=== PATIENT | female | born 1975 | race Caucasian/White ===

== ENCOUNTER 2018-04-27 14:13 | Inpatient (IN) | payer OTHER ==
[2018-04-27] MEDS ORDERED: Ketorolac Tromethamine 30 MG/ML VIAL ONE (15:50)
[2018-04-27] MEDS ORDERED: Haloperidol Lactate 5 MG/ML VIAL ONE (16:16)
[2018-04-27] MEDS ORDERED: Ketorolac Tromethamine 30 MG/ML VIAL IVP PRN (17:35)
[2018-04-27] MEDS ORDERED: Acetaminophen 650 MG Suppository PR PRN (17:35)
[2018-04-27 17:48] VITALS: BMI 35.9
[2018-04-27] MEDS: Dextrose 5%-Lactated Ringers 1,000 ML IV SCH (18:05)
--- NOTE | 2018-04-27 18:44 | HP ---
Patient transferred from [place] to [facility] with possible small-bowel obstruction. [facility] HISTORY OF PRESENT ILLNESS: The patient has had nausea and vomiting since 4:00 a.m. No blood. She h as had diffuse abdominal pain; however, she has apparently had longstanding abdominal pain, this is e pigastric. She has had no fever. She has had some mild chills and some sweats. Last BM was yesterd ay. No melena. Her only chronic medical problem is bipolar type 2. CURRENT MEDICATIONS: or Prozac 60 mg a day, Abilify 10 mg a day, Tegretol 300 mg twice a day, 400 mg at bedtime. ALLERGIES: IODINE CONTRAST. PAST SURGICAL HISTORY: Gastric bypass in 2004, exploratory lap in 10/22/2005 and 12/21, in 2008. FAMILY HISTORY: She states occasionally her ammonia gets high. She has a OTC deficiency, mild. She states her Father of colorectal cancer. Mother is okay. She is single. SOCIAL HISTORY: No tobacco, no alcohol. Admits to THC for which she states she uses to try to contr ol the nausea. REVIEW OF SYSTEMS: General: No headache, dizziness or fainting. Eyes: No double vision, flashing lights, blurred vision. ENT: No ear pain or drainage. No nasal bleeding or drainage. No oral pain or trouble swallowing. Cardiac: No chest pain, orthopnea or paroxysmal nocturnal dyspnea. Respira tions: No cough, wheezing or asthma. Gastrointestinal: See present illness. Genitourinary: No hematuria, dysuria. Musculoskeletal: No pain or swelling in her legs or arms. Neurologic: No history of strokes, seizures or focal weakness. Psychiatric: Bipolar syndrome for carin huaater than 15 years. Skin: No bruises, bleeding or rash. Heme/Lymph: No tender or swollen lymph nodes in axilla, inguinal or cervical area. PHYSICAL EXAMINATION: VITAL SIGNS: Blood pressure 141/82, pulse 65, respiration 18, temperature 98. She complains of 10/1 0 pain. HEENT: Pupils equal, round, and reactive to light. Extraocular movements are intact. Sclerae white . Tympanic membranes are clear. Nose is clear. Oral mucous membranes are wet. Dental hygiene is g ood. NECK: Supple, without jugular venous distention, adenopathy, thyromegaly. CHEST: Clear to auscultation and percussion. HEART: Had a regular rate and rhythm. First and second heart sounds are clear. There are no murmur s or gallops. ABDOMEN: No distention. Bowel sounds are present. The patient reacts with complaints of severe iwona n if even touch her skin of her abdomen. EXTREMITIES: No cyanosis, clubbing or edema. SKIN: Warm and dry without bruises or rash. HEME/LYMPH: No tender or swollen lymph nodes in axilla, inguinal or cervical area. NEUROLOGICAL: Cranial nerves II through XII are intact. Deep tendon reflexes symmetric. Moves all extremities. LABORATORY DATA AND X-RAY FINDINGS: CT scan done in [place] without contrast IV or oral suggest possible small-bowel obstruction of ventral hernia with bowel in it. Laboratory done in [facility] showed white blood cell count of 11.4, hemoglobin 14.7, platelet count 327,000. Chemistries: Lact ic acid 4.4, glucose 123, sodium 144, potassium 3.5, chloride 111, CO2 17, BUN 8, creatinine 0.73. L iver function tests normal. test negative. Lipase 27. ADMITTING DIAGNOSES: 1. Nausea and vomiting. 2. Abdominal pain. 3. Small-bowel obstruction per CT scan. 4. Bipolar syndrome. 5. Lactic acidosis. PLAN: 1. Surgery consult. 2. Probable Gastrografin upper GI. 3. Repeat CBC, basic metabolic profile in the morning. 4. IV fluids at 125 mL an hour. 5. Toradol for pain.
[2018-04-27] MEDS: Famotidine/PF 20 mg/2ml Vial SLOW IVP SCH (19:56)
[2018-04-27 20:40] LABS: Lactic Acid 3.1 mmol/L (0.5-2.2)
--- NOTE | 2018-04-27 21:05 | RAD ---
FOUR VIEWS OF THE ABDOMEN: 04/27/18 INDICATION: Small bowel obstruction. COMPARISON: CT of the abdomen and pelvis dated 04/27/18. FINDINGS: There has been interval placement of a gastric catheter coiled within the region of the gastric body. Bowel gas pattern is nonspecific but without overt evidence of obstruction. Surgical suture line seen within the left upper quadrant consistent with patient's history of a gastric bypass. There is scatt ered degenerative and osteoarthritic change. There is thoracolumbar scoliosis. Visualized lung bases are clear. IMPRESSION: 1. Interval placement of new gastric catheter projecting in the region of the patient's gastric pouch. 2. Postoperative change of a gastric bypass. 3. Bowel gas pattern is nonspecific but without overt evidence of obstruction. POS: [facility]
[2018-04-27] MEDS: Ondansetron HCl/PF 4 MG/2 ML Vial IVP PRN (21:38)
[2018-04-28] MEDS: Dextrose 5%-Lactated Ringers 1,000 ML IV SCH ×2 (04:51→10:51)
[2018-04-28 04:52] LABS: Anion Gap 15 mmol/L (10-20); BUN (Urea Nitrogen) 7 mg/dL (7.0-18.7); Calc. Creatinine Clearance 201 mL/min (70-130); Calcium 8.7 mg/dL (7.8-10.44); Carbon Dioxide 17 mmol/L (22-29); Chloride 115 mmol/L (98-107); Estimated GFR-MDRD Greater than 90; Glucose 161 mg/dL (70-105); Potassium 3.3 mmol/L (3.5-5.1); Sodium 144 mmol/L (136-145)
[2018-04-28] MEDS: Ondansetron HCl/PF 4 MG/2 ML Vial IVP PRN (04:52)
[2018-04-28 05:10] LABS: #Lymphocytes 1.4 thou/uL (1.20-3.40); #Monocytes 0.6 thou/uL (0.11-0.59); %Basophils 0.5 % (0.0-1.0); %Eosinophils 0.3 % (0.0-10.0); %Lymphocytes 15.3 % (21.0-51.0); %Monocytes 6.3 % (0.0-10.0); %Neutrophils 77.7 % (42.0-75.0); Anisocytosis MODERATE=16-30 cells (100X) (0-5/hpf); Elliptocytes SLIGHT = 2-5 cells (100X) (0-1/hpf); Hemoglobin 13.5 g/dL (12.0-16.0); MDiff Complete? YES; Mean Corpuscular HGB CONC 33.5 g/dL (32.0-36.0); Mean Corpuscular Hemoglobin 26.3 pg (27.0-31.0); Mean Corpuscular Volume 78.7 fL (78.0-98.0); Mean Platelet Volume 6.2 fL (7.4-10.4); PLT Morphology Comment Appears Adequate; Platelet Count 212 thou/uL (130-400); RBC Distribution Width 22.5 % (11.5-14.5); Red Blood Cell (RBC) Count 5.12 mill/uL (4.20-5.40)
--- NOTE | 2018-04-28 07:59 | PDOC.PN ---
- Subjective Encounter Start Date: 04/28/18 Encounter Start Time: 07:58 Subjective: better, had BM - Objective Resuscitation Status: Resuscitation Status FULL:Full Resuscitation MAR Reviewed: Yes Vital Signs & Weight: Vital Signs (12 hours) Temp Pulse Resp BP Pulse Ox 04/28/18 00:00 98.7 F 75 20 160/94 H 98 04/27/18 20:00 99.1 F 70 20 99 Weight Weight 229 lb 4.492 oz I&O: 04/27/18 04/28/18 04/29/18 06:59 06:59 06:59 Intake Total 1200 Output Total 2 Balance 1198 Result Diagrams: 04/28/18 03:28 04/28/18 03:28 Radiology Reviewed by me: Yes (2 V abd- no evidense for SBO) Phys Exam - Physical Examination Neck: no JVD Respiratory: clear to auscultation bilateral Cardiovascular: RRR, no significant murmur Gastrointestinal: soft, positive bowel sounds Musculoskeletal: no edema Dx/Plan (1) SBO (small bowel obstruction) Code(s): K56.609 - UNSP INTESTNL OBST, UNSP TO PARTIAL VERSUS COMPLETE OBST Status: Resolved (2) Bipolar 2 disorder Code(s): F31.81 - BIPOLAR II DISORDER Status: Acute (3) Lactic acid acidosis Code(s): E87.2 - ACIDOSIS Status: Acute - Plan DC NG -: clear liquids -: resume home meds * .
[2018-04-28 08:00] LABS: Cocaine Metabolite Screen Not Detected (NotDetected); Medtox Reader # READER 4; Phencyclidine (PCP) Not Detected (NotDetected); THC/Cannabinoid Screen Detected (NotDetected)
[2018-04-28 08:01] LABS: Amphetamine Not Detected (NotDetected); Barbiturates Screen Not Detected (NotDetected); Benzodiazepine Screen Detected (NotDetected); Medtox Control Line Valid? VALID (VALID); Methadone Not Detected (NotDetected); Methamphetamine Not Detected (NotDetected); Opiate Screen Detected (NotDetected); Oxycodone Screen Not Detected (NotDetected); Tricyclic Screen Not Detected (NotDetected)
[2018-04-28] MEDS ORDERED: buPROPion 75 MG TAB PO SCH (09:00)
[2018-04-28] MEDS ORDERED: FLUoxetine HCl 20 MG CAP PO SCH ×2 (09:00→21:00)
[2018-04-28] MEDS ORDERED: carBAMazepine 200 MG TAB PO SCH ×2 (09:00→21:00)
[2018-04-28] MEDS: Famotidine/PF 20 mg/2ml Vial SLOW IVP SCH (10:50)
--- NOTE | 2018-04-28 10:50 | RAD ---
SMALL BOWEL SERIES: Date: 04/28/18 HISTORY: 42-year-old female with diagnosis of partial small bowel obstruction. FINDINGS: On the drag car racer view, the previously demonstrated NG tube that was present on 04/27/18 is no longer pres ent. Suture lines are again noted in the left upper quadrant. Bowel gas pattern is normal. 15 minutes after Gastrografin administration, contrast material is present throughout the entire small intestin e, and has already reached the entire colon, including rectum. Small bowel caliber is normal. IMPRESSION: 1. Very rapid gastrointestinal transit time. 2. No small bowel obstruction. POS: [facility]
--- NOTE | 2018-04-28 11:48 | PDOC.GSCN ---
Surgery Consult: HPI - Consult details Date: 04/28/18 Time: 11:00 Reason for consult: small bowel obstruction History of present illness: 04/28/18 11:51 Patient presented with nausea, vomiting, diffuse abdominal pain. Patient has had bowel movement. She is feeling well, pain has resolved. Denies nausea. Surgery Consult: ROS - Review of Systems All systems: 10 systems reviewed and no additional complaints unless stated below. Surgery Consult: [facility] Past Medical History: Bipolar Past Surgical History: Gastric bypass, exploratory laparotomy , - Past Family History Family history: reviewed and not pertinent - Past Social History Smoking Status: Never smoker Alcohol Use: none Drug Use History: marijuana Living Situation: independent Surgery Consult: Exam - Vital signs Vital signs: Vital Signs - Most Recent Temp Pulse Resp BP Pulse Ox 99.2 F 64 18 151/86 H 97 04/28/18 11:38 04/28/18 11:38 04/28/18 11:38 04/28/18 11:38 04/28/18 11:38 - Physical Exam General: no distress, well developed, well nourished Respiratory: clear to auscultation (RRR, no murmur) Abdomen: soft, tender (very mild diffuse). negative: guarding, rigid, rebound Psychiatric: memory intact Surgery Consult: Meds - Medications MAR Reviewed: Yes Medications: Current Medications Acetaminophen (Tylenol) 650 mg OK Q4H PRN PRN Reason: Headache/Fever or Pain Aripiprazole (Abilify) 10 mg PO HS [facility] Bupropion HCl (Wellbutrin) 150 mg PO DAILY [facility] Last Admin: 04/28/18 10:50 Dose: 150 mg Carbamazepine (Tegretol) 300 mg PO DAILY [facility] Last Admin: 04/28/18 10:49 Dose: 300 mg Carbamazepine (Tegretol) 400 mg PO HS [facility] Famotidine (Pepcid) 20 mg SLOW IVP Q12HR [facility] Last Admin: 04/28/18 10:50 Dose: 20 mg Fluoxetine HCl (Prozac) 20 mg PO HS [facility] Fluoxetine HCl (Prozac) 40 mg PO DAILY [facility] Last Admin: 04/28/18 10:50 Dose: 40 mg Morphine Sulfate (Morphine) 2 mg SLOW IVP Q4H PRN PRN Reason: Pain Last Admin: 04/28/18 04:30 Dose: 2 mg Ondansetron HCl (Zofran) 4 mg IVP Q6H PRN PRN Reason: Nausea/Vomiting Last Admin: 04/28/18 04:52 Dose: 4 mg Trazodone HCl (Desyrel) 300 mg PO HS KILEY - Allergies Allergies/Adverse Reactions: Allergies Allergy/AdvReac Type Severity Reaction Status Date / Time iodine Allergy Verified 04/27/18 18:38 ketorolac [From Toradol] AdvReac Verified 04/27/18 18:06 Surgery Consult: Results - Labs Result Diagrams: 04/28/18 03:28 04/28/18 03:28 Lab results: Laboratory Results WBC 9.0 thou/uL (4.8-10.8) 04/28/18 03:28 RBC 5.12 mill/uL (4.20-5.40) 04/28/18 03:28 Hgb 13.5 g/dL (12.0-16.0) 04/28/18 03:28 Hct 40.3 % (36.0-47.0) 04/28/18 03:28 MCV 78.7 fL (78.0-98.0) 04/28/18 03:28 MCH 26.3 pg (27.0-31.0) L 04/28/18 03:28 MCHC 33.5 g/dL (32.0-36.0) 04/28/18 03:28 RDW 22.5 % (11.5-14.5) H 04/28/18 03:28 Plt Count 212 thou/uL (130-400) 04/28/18 03:28 MPV 6.2 fL (7.4-10.4) L 04/28/18 03:28 Neutrophils % 77.7 % (42.0-75.0) H 04/28/18 03:28 Neutrophils % (Manual) Not Reportable 04/28/18 03:28 Lymphocytes % 15.3 % (21.0-51.0) L 04/28/18 03:28 Monocytes % 6.3 % (0.0-10.0) 04/28/18 03:28 Eosinophils % 0.3 % (0.0-10.0) 04/28/18 03:28 Basophils % 0.5 % (0.0-1.0) 04/28/18 03:28 Neutrophils # 7.0 thou/uL (1.40-6.50) H 04/28/18 03:28 Lymphocytes # 1.4 thou/uL (1.20-3.40) 04/28/18 03:28 Monocytes # 0.6 thou/uL (0.11-0.59) H 04/28/18 03:28 Eosinophils # 0.0 thou/uL (0.0-0.7) 04/28/18 03:28 Basophils # 0.0 thou/uL (0.0-0.2) 04/28/18 03:28 Plt Morphology Comment Appears Adequate 04/28/18 03:28 Anisocytosis MODERATE=16-30 cells (100X) (0-5/hpf) 04/28/18 03:28 Elliptocytes SLIGHT = 2-5 cells (100X) (0-1/hpf) 04/28/18 03:28 Sodium 144 mmol/L (136-145) 04/28/18 03:28 Potassium 3.3 mmol/L (3.5-5.1) L 04/28/18 03:28 Chloride 115 mmol/L (98-107) H 04/28/18 03:28 Carbon Dioxide 17 mmol/L (22-29) L 04/28/18 03:28 Anion Gap 15 mmol/L (10-20) 04/28/18 03:28 BUN 7 mg/dL (7.0-18.7) 04/28/18 03:28 Creatinine 0.61 mg/dL (0.6-1.1) 04/28/18 03:28 Estimated GFR (MDRD) Greater than 90 04/28/18 03:28 Glucose 161 mg/dL (70-105) H 04/28/18 03:28 Lactic Acid 3.1 mmol/L (0.5-2.2) H 04/27/18 20:08 Calcium 8.7 mg/dL (7.8-10.44) 04/28/18 03:28 Urine Opiates Screen Detected (NotDetected) H 04/28/18 07:00 Ur Oxycodone Screen Not Detected (NotDetected) 04/28/18 07:00 Urine Methadone Screen Not Detected (NotDetected) 04/28/18 07:00 Ur Propoxyphene Screen Not Detected (NotDetected) 04/28/18 07:00 Ur Barbiturates Screen Not Detected (NotDetected) 04/28/18 07:00 Ur Tricyclics Screen Not Detected (NotDetected) 04/28/18 07:00 Ur Phencyclidine Scrn Not Detected (NotDetected) 04/28/18 07:00 Ur Amphetamines Screen Not Detected (NotDetected) 04/28/18 07:00 U Methamphetamines Scrn Not Detected (NotDetected) 04/28/18 07:00 U Benzodiazepines Scrn Detected (NotDetected) H 04/28/18 07:00 U Cocaine Metab Screen Not Detected (NotDetected) 04/28/18 07:00 U Cannabinoids Screen Detected (NotDetected) H 04/28/18 07:00 Drug Screen Comment () 04/28/18 07:00 Surgery Consult: A/P - Plan Plan: 42 year old female admitted with concern for possible SBO - abdominal xray reviewed - small bowel series showed rapid GI transit time, no SBO - advance to regular diet - considering recent BMs and reassuring imaging, no indication for surgery at this time - Pending tolerating PO intake well, okay for discharge later today Patient seen, examined, discussed Dr. Archuleta who formulated plan and is in agreement with above.
[2018-04-28 16:50] VITALS: BP 149/84; TEMP 100.1
--- NOTE | 2018-04-28 18:22 | DIS ---
DATE OF ADMISSION: 04/27/2018 DATE OF DISCHARGE: 04/28/2018 DISCHARGE DISPOSITION: Home. PRIMARY CARE PROVIDER: Rush Rivera. DIAGNOSES: Small-bowel obstruction relieved, bipolar II disorder, acidosis. DISCHARGE MEDICATIONS: Were her home medicines; fluoxetine 60 mg a day, Abilify 10 mg a day, trazodo ne 300 mg at bedtime, bupropion 150 mg a day, Tegretol 300 mg in the morning and 400 at night. ALLERGIES: IODINE, TORADOL. HOSPITAL COURSE: The patient with nausea, vomiting and abdominal discomfort, seen in [place] [facility] with CT revealed possible small-bowel obstruction. She was transferred here. On her laboratory her e, CBC is unremarkable. Her chemistries revealed mild decreased chloride, CO2. On first visit, she had some abdominal distention and some tenderness. Now she is tolerating clear liquids and got marcial ous of going home. She was seen in consultation by General Surgery who considered her safe to be dis charged. Her vital signs are stable. Her abdominal exam is unremarkable. She had no procedures. S he is being discharged to be followed up by her PCP, Dr. Rivera in 1 week.
[2018-04-28] MEDS ORDERED: traZODone HCl 150 MG TAB PO SCH (21:00)
[2018-04-28] MEDS ORDERED: Aripiprazole 10 MG TAB PO SCH (21:00)
== END 2018-04-28 17:20 | disposition home or self-care (01) | DRG 389 ==
LOC: ERS 14:13 → T4-B 14:40 → ERS 17:15
PROVIDERS: ADMIT Internal Medicine; ATTEND Internal Medicine
DX: K56.609 Unspecified intestinal obstruction, unspecified as to partial versus complete obstruction (principal); E87.2 Acidosis; F31.81 Bipolar II disorder; Z98.84 Bariatric surgery status; Z80.0 Family history of malignant neoplasm of digestive organs; Z91.041 Radiographic dye allergy status
CPT/HCPCS: 36415; 74019; 74250; 80048; 80306; 83605; 85025; 96374; 96375; J1630; J1885; J2270; J2405; S0028

== ENCOUNTER 2020-02-07 15:32 | Inpatient (IN) | payer OTHER ==
[2020-02-07 18:02] VITALS: BMI 42.3
[2020-02-07] MEDS ORDERED: Enoxaparin Sodium 40 MG/0.4 ML SYRINGE SC SCH (20:00)
--- NOTE | 2020-02-07 20:03 | PDOC.HHP ---
Hospitalist HPI - History of Present Illness Lower Lip swelling/Pain History of Present Illness: PCP: Dr. Velázquez The patient is a 44/F with no significant PMH that presents to the hospital for the above complaint. The patient reports lower lip swelling x 6 days. States that it started as a "pimple" on her lower right lip on . She washed her face that morning and it went away. evening, it returned. Reports increased swelling and pain. On Thursday, she went to the ER, she was given prescription for Clindamycin. She has been compliant, taking the medication as prescribed. Today, she had increased swelling and pain, rated 10/10 on pain scale, she reports having to eat a liquid diet using a straw. She reports associated fever, Tmax 101F this morning, taking tylenol and ibuprofen. She denies any dysphagia or SOB. She is able to control her saliva. Her told her that he did see a spider in their bed, the morning that she developed the original insult to her lip. ED Course: VS stable WBC 9.2 LA 1.0 CMP unremarkable Given: Hydroxyzine Morphine 4mg IVP Vanc and Cefepime 1L NS Allergies: Iodine and ketorolac Home Medications: 1. Vistaril 50mg QID prn anxiety Hospitalist ROS - Review of Systems Constitutional: reports: fever (Tmax 101F). denies: chills, weakness Eyes: denies: pain, vision change, conjunctivae inflammation, eyelid inflammation, redness, other ENT: reports: mouth pain (lower lip), mouth swelling (lower lip). denies: ear pain, ear discharge, nose pain, nose discharge, nose congestion, throat pain, throat swelling Respiratory: denies: cough, dry, shortness of breath, hemoptysis, SOB with excertion, pleuritic pain, sputum, wheezing, other Cardiovascular: denies: chest pain, palpitations, orthopnea, paroxysmal noc. dyspnea, edema, light headedness, other Gastrointestinal: denies: nausea, vomiting, abdominal pain, diarrhea, constipation, melena, hematochezia, other Genitourinary: denies: dysuria, frequency, incontinence, hematuria, retention, other Neurological: denies: weakness, numbness, incoordination, change in speech, confusion, seizures, other Hospitalist History - Past Medical History Source: patient Psych: reports: Anxiety, Bipolar Renal/: reports: Other (recurrent UTIs) Other Medical History: Obesity Ornithine TransCarbamylase (OTC) deficiency - Past Surgical History Past Surgical History: reports: , Tonsillectomy, Other (Gastric bypass) - Family History Family History: reports: no pertinent history Other Family History: Non contributory for this case - Social History Smoking Status: Current every day smoker Alcohol: reports: Rare Drugs: reports: marijuana (1/2 -1 joint per day) Living Situation: With Family Occupation: Lives in [place], works at [employer]. Activity level: independent ambulation - Exam General Appearance: NAD, awake alert Eye: PERRL, anicteric sclera ENT: normocephalic atraumatic ENT - other findings: significant swelling to lower lip with induration to right low lip Neck: supple Heart: RRR, no murmur, no gallops, no rubs, normal peripheral pulses Respiratory: CTAB, no wheezes, no rales, no ronchi, no tachypnea Gastrointestinal: soft, non-tender, normal bowel sounds, no guarding, no rigidity Extremities: no cyanosis, no edema Neurological: no focal deficits Musculoskeletal: normal tone, normal strength Psychiatric: normal affect, A&O x 3 Hospitalist H&P A/P - Problem (1) Cellulitis, lip Code(s): K13.0 - DISEASES OF LIPS Status: Acute Assessment and Plan: Admit to the medical floor, inpatient status Expected length of stay at least 2 midnights Patient report febrile, Tmax 101F, oral clindamycin x3-4 days w/ worsening swelling and pain Afebrile, VS stable WBC 9.2 LA 1.0 Continue broad spectrum abx coverage w/ vanc and cefepime IVF, analgesia prn If symptoms do not improve, consider consulting OFM/surgeon (2) Failure of outpatient treatment Code(s): Z78.9 - OTHER SPECIFIED HEALTH STATUS Status: Acute Assessment and Plan: Started Oral Clindamycin on Thursday, 3-4 days therapy Worsening swelling, pain and febrile (3) Bipolar 2 disorder Code(s): F31.81 - BIPOLAR II DISORDER Status: Chronic Assessment and Plan: stable. (4) Anxiety Code(s): F41.9 - ANXIETY DISORDER, UNSPECIFIED Status: Chronic Assessment and Plan: Patient takes Vistaril prn Will restart home med when reconciled by nursing - Plan Plan: Consult Walking program Pepcid GI prophylaxis LMWH DVT prophylaxis Full Code [facility] is [facility] at [phone] Taylor
[2020-02-07] MEDS: Famotidine 20 MG TAB PO SCH (20:45)
[2020-02-07] MEDS: HYDROcodone/Acetaminophen 5/325 mg Tablet PO PRN (20:45)
[2020-02-07] MEDS: Vancomycin 1.5 GRAM/300 ML BAG 1.5 GM in Premix Bag 1 BAG IVPB SCH (20:45)
[2020-02-07] MEDS: Sodium Chloride 0.9% 1,000 ML IV SCH (20:46)
[2020-02-07] MEDS: hydrOXYzine Pamoate 25 mg Capsule PO PRN (20:55)
[2020-02-08] MEDS: HYDROcodone/Acetaminophen 5/325 mg Tablet PO PRN ×6 (00:16→23:39)
[2020-02-08] MEDS ORDERED: Cefepime 2 GM in Sodium Chloride 0.9% 100 ML IVPB SCH (04:00)
[2020-02-08] MEDS: Vancomycin 1.5 GRAM/300 ML BAG 1.5 GM in Premix Bag 1 BAG IVPB SCH ×3 (05:17→20:56)
[2020-02-08 06:34] LABS: #Eosinphils 0.1 thou/uL (0.0-0.7); #Monocytes 0.6 thou/uL (0.11-0.59); #Neutrophils 4.5 thou/uL (1.40-6.50); %Basophils 0.4 % (0.0-1.0); %Eosinophils 1.5 % (0.0-10.0); %Lymphocytes 27.3 % (21.0-51.0); %Neutrophils 62.8 % (42.0-75.0); Hemoglobin 13.8 g/dL (12.0-16.0); Mean Corpuscular HGB CONC 31.6 g/dL (32.0-36.0); Mean Corpuscular Hemoglobin 26.7 pg (27.0-31.0); Mean Corpuscular Volume 84.6 fL (78.0-98.0); Mean Platelet Volume 8.9 fL (7.4-10.4); Platelet Count 212 thou/uL (130-400); RBC Distribution Width 14.7 % (11.5-14.5); Red Blood Cell (RBC) Count 5.15 mill/uL (4.20-5.40); White Blood Cell (WBC) Count 7.2 thou/uL (4.8-10.8)
[2020-02-08 06:56] LABS: Anion Gap 12 mmol/L (10-20); BUN (Urea Nitrogen) 5 mg/dL (7.0-18.7); Calc. Creatinine Clearance 223 mL/min (70-130); Calcium 8.1 mg/dL (7.8-10.44); Carbon Dioxide 23 mmol/L (22-29); Chloride 108 mmol/L (98-107); Estimated GFR-MDRD Greater than 90; Glucose 95 mg/dL (70-105); Potassium 3.3 mmol/L (3.5-5.1); Sodium 140 mmol/L (136-145)
[2020-02-08] MEDS: Famotidine 20 MG TAB PO SCH (09:56)
[2020-02-08] MEDS: Sodium Chloride 0.9% 1,000 ML IV SCH ×2 (10:02→11:26)
[2020-02-08] MEDS ORDERED: Potassium Chloride 20 MEQ TAB PO SCH (10:15)
[2020-02-08] MEDS ORDERED: methylPREDNISolone Sod Succ/PF 125 MG/2 ML VIAL IVP SCH (11:15)
[2020-02-08] MEDS: hydrOXYzine Pamoate 25 mg Capsule PO PRN (11:44)
[2020-02-08] MEDS: Ampicillin/Sulbactam 1.5 GM in Sodium Chloride 0.9% 100 ML IVPB SCH ×2 (11:44→17:53)
--- NOTE | 2020-02-08 14:09 | PDOC.HOSPP ---
- Subjective Encounter Date: 02/08/20 Encounter Time: 09:30 Subjective: burning sensation radiating to the neck, pain controlled, hx of spider bite reaction in her r.. arm. - Objective Vital Signs & Weight: Vital Signs (12 hours) Temp Pulse Resp BP Pulse Ox 02/08/20 12:07 98.7 F 69 18 144/89 H 99 02/08/20 09:45 94 L 02/08/20 08:33 98.2 F 67 18 133/90 94 L 02/08/20 04:00 99.1 F 73 18 130/84 96 Weight Weight 246 lb 7 oz Result Diagrams: 02/08/20 06:23 02/08/20 06:23 Hospitalist ROS - Medication Medications: Active Medications Generic Name Dose Route Start Last Admin Trade Name Freq PRN Reason Stop Dose Admin Hydrocodone Bitart/Acetaminophen 2 tab 02/07/20 19:47 02/08/20 09:58 [place] 5/325 PO 2 tab Q4H PRN Administration Severe Pain (7-10) Famotidine 20 mg 02/07/20 21:00 02/08/20 09:56 Pepcid PO 20 mg BID KILEY Administration Hydroxyzine Pamoate 50 mg 02/07/20 19:53 02/08/20 11:44 Vistaril PO 50 mg QIDPRN PRN Administration Anxiety Vancomycin HCl 1.5 gm/ Device 300 mls @ 200 mls/hr 02/07/20 21:00 02/08/20 13 :26 IVPB 300 mls 0500,1300,2100 KILEY Administration Sodium Chloride 1,000 mls @ 75 mls/hr 02/07/20 20:00 02/08/20 11:26 Normal Saline 0.9% IV 1,000 mls .[id number] KILEY Administration Ampicillin Sodium/Sulbactam 100 mls @ 200 mls/hr 02/08/20 12:00 02/08/20 11: 44 Sodium 1.5 gm/ Sodium Chloride IVPB 100 mls Q6HR KILEY Administration - Exam Eye: PERRL ENT: normocephalic atraumatic ENT - other findings: lower lip swollen, some crest and no active serous or fluid discharge Neck: supple Heart: RRR Respiratory: CTAB, normal chest expansion Gastrointestinal: soft, normal bowel sounds Neurological: no focal deficits Psychiatric: A&O x 3 Hosp A/P - Plan ) Cellulitis, lip Code(s): K13.0 - DISEASES OF LIPS Status: Acute Assessment and Plan: Admit to the medical floor, inpatient status Expected length of stay at least 2 midnights Patient report febrile, Tmax 101F, oral clindamycin x3-4 days w/ worsening swelling and pain Afebrile, VS stable WBC 9.2 LA 1.0 -switch to unasyn - swelling not improved - will c/s OMF sux - few doses of steroid. -pharm c/s for vanc. -- will dc vanc if swelling improved or/wait for consult input. (2) Failure of outpatient treatment Code(s): Z78.9 - OTHER SPECIFIED HEALTH STATUS Status: Acute Assessment and Plan: Started Oral Clindamycin on Thursday, 3-4 days therapy Worsening swelling, pain and febrile (3) Bipolar 2 disorder stable (4) Anxiety - Patient takes Vistaril prn Pepcid GI prophylaxis LMWH DVT prophylaxis [facility] is [facility] at [phone]
[2020-02-08] MEDS ORDERED: Ondansetron PF 4 MG/2 ML Vial SLOW IVP PRN (17:35)
[2020-02-08] MEDS: Mupirocin 2% Ointment 22 GM Tube TOP SCH (20:02)
[2020-02-08 20:24] LABS: Vancomycin, Trough 17.1 ug/mL
[2020-02-09] MEDS: hydrOXYzine Pamoate 25 mg Capsule PO PRN ×2 (00:26→22:02)
[2020-02-09] MEDS: Sodium Chloride 0.9% 1,000 ML IV SCH ×2 (01:13→14:37)
--- NOTE | 2020-02-09 01:29 | CON ---
DATE OF CONSULTATION: 02/08/2020 HISTORY OF PRESENT ILLNESS: This is a 44-year-old female who reports noticing a small pimple on her right lower lip that began last after getting ready for work. She notes that it kind of popped and spontaneously drained on her own and then she developed worsening signs and symptoms over the next several days of increased swelling and pain ultimately resulting in uncontrollable pain and associated fever for which she was seen at outside ER and then transferred to [facility] for medical intervention. Oral surgery was consulted due to worsening symptoms since admission. PAST MEDICAL HISTORY: Anxiety. MEDICATIONS: Vistaril 50 mg q.i.d. p.r.n. ALLERGIES: 1. IODINE. 2. KETOROLAC. PAST SURGICAL HISTORY: 1. . 2. Tonsillectomy. 3. Gastric bypass. SOCIAL HISTORY: Denied smoking. Social alcohol use. Marijuana use daily. REVIEW OF SYMPTOMS: The patient reports obvious right lower lip swelling and pain. She reports this pain earlier today was radiating down into her jaw, neck, but has since resolved. PHYSICAL EXAMINATION: HEENT: Significant edema, erythema, and fluctuance associated with the right lower lip, does not appear to extend beyond the vermilion border or significantly past the mucosal surface intraorally. There is crusting and scabbing of the lip as well consistent with the area where the patient reports the initial wound and some spontaneous drainage. No intraoral signs associated with odontogenic source of infection. Pupils are equal, round, and reactive to light. Extraocular movements are intact. Nose and ears within normal limits. Mandibular range of motion within normal limits. NECK: Supple. ASSESSMENT AND PLAN: This is a 44-year-old female with apparent Staph infection of the right lip. The patient does report concern for potentially starting as a spider bite in the area as they have noticed multiple spiders around her house; and her and her have experienced spiders bites over the past week. She does also report that she has noticed improvement in the swelling since this morning and that she subjectively feels better over the past few hours with her appetite returning and pain decreasing. Plan due to the obvious fluctuance within the lip, recommended a bedside incision and drainage under local anesthesia, which the patient agreed. A right mental nerve block was administered with 2% lidocaine with 1:100,000 epinephrine. A 15-blade was used to open the existing scabbed over wound on the right lip. A moderate amount of purulence was able to be expressed from the wound. This was cultured. Then, a small 4 mm secondary incision was made on the mucosal surface of the lip near the commissure and again, additional purulent drainage was achieved on digital manipulation of the lip. The patient tolerated the procedure well. Recommend continuing IV antibiotic therapy. Application of Bactroban b.i.d. may be beneficial for the crusting and dryness of the lip as well as open wound that is present on the lip. The patient can follow up in the Oral Surgery Clinic in 1 week if needed. Call [phone] for an appointment or with questions, concerns, or worrisome symptoms after discharge. Job ID: [id number]
[2020-02-09] MEDS: Ampicillin/Sulbactam 1.5 GM in Sodium Chloride 0.9% 100 ML IVPB SCH ×4 (03:25→19:47)
[2020-02-09] MEDS: HYDROcodone/Acetaminophen 5/325 mg Tablet PO PRN ×4 (06:19→19:46)
[2020-02-09] MEDS ORDERED: Famotidine 20 MG TAB PO SCH (09:00)
[2020-02-09] MEDS: Saccharomyces boulardii 250 MG CAP PO SCH (09:08)
[2020-02-09] MEDS: methylPREDNISolone Sod Succ 40 MG VIAL IVP SCH (09:48)
[2020-02-09] MEDS: Mupirocin 2% Ointment 22 GM Tube TOP SCH ×2 (09:59→19:47)
[2020-02-09] MEDS: Vancomycin 1.5 GRAM/300 ML BAG 1.5 GM in Premix Bag 1 BAG IVPB SCH ×2 (10:23→17:13)
--- NOTE | 2020-02-09 14:31 | PDOC.HOSPP ---
- Objective Vital Signs & Weight: Vital Signs (12 hours) Temp Pulse Resp BP Pulse Ox 02/09/20 11:30 98.2 F 67 18 130/90 98 02/09/20 09:00 96 02/09/20 07:06 98.9 F 76 18 135/76 96 Weight Admit Weight 246 lb 6.4 oz Weight 246 lb 7 oz I&O: 02/08/20 02/09/20 02/10/20 06:59 06:59 06:59 Intake Total 2124 Balance 2124 Result Diagrams: 02/08/20 06:23 02/08/20 06:23 Hospitalist ROS - Medication Medications: Active Medications Generic Name Dose Route Start Last Admin Trade Name Freq PRN Reason Stop Dose Admin Hydrocodone Bitart/Acetaminophen 2 tab 02/07/20 19:47 02/09/20 10:20 [place] 5/325 PO 2 tab Q4H PRN Administration Severe Pain (7-10) Hydroxyzine Pamoate 50 mg 02/07/20 19:53 02/09/20 00:26 Vistaril PO 50 mg QIDPRN PRN Administration Anxiety Sodium Chloride 1,000 mls @ 75 mls/hr 02/07/20 20:00 02/09/20 01:13 Normal Saline 0.9% IV Not Given .[id number] KILEY Ampicillin Sodium/Sulbactam 100 mls @ 200 mls/hr 02/09/20 03:00 02/09/20 12: 48 Sodium 1.5 gm/ Sodium Chloride IVPB 100 mls 0300,0900,1500,2100 KILEY Administration Vancomycin HCl 1.5 gm/ Device 300 mls @ 200 mls/hr 02/09/20 08:00 02/09/20 10 :23 IVPB 300 mls 0800,1600,2359 KILEY Administration Methylprednisolone Sodium Succinate 40 mg 02/09/20 09:00 02/09/20 09:48 Solu-Medrol IVP 40 mg DAILY KILEY Administration Mupirocin 0 gm 02/08/20 21:00 02/09/20 09:59 Bactroban 2% Ointment TOP 1 applic BID KILEY Administration Saccharomyces Boulardii 250 mg 02/09/20 09:00 02/09/20 09:08 Florastor PO 250 mg DAILY KILEY Administration Hosp A/P - Plan ) Cellulitis, lip Code(s): K13.0 - DISEASES OF LIPS Status: Acute Assessment and Plan: Admit to the medical floor, inpatient status Expected length of stay at least 2 midnights Patient report febrile, Tmax 101F, oral clindamycin x3-4 days w/ worsening swelling and pain Afebrile, VS stable WBC 9.2 LA 1.0 -switch to unasyn - OMF sux follows - few doses of steroid. -pharm c/s for vanc. -- will dc vanc if swelling improved or/wait for consult input.------------>done -s/p I & D on (2) Failure of outpatient treatment Code(s): Z78.9 - OTHER SPECIFIED HEALTH STATUS Status: Acute Assessment and Plan: Started Oral Clindamycin on Thursday, 3-4 days therapy Worsening swelling, pain and febrile (3) Bipolar 2 disorder stable (4) Anxiety - Patient takes Vistaril prn Pepcid GI prophylaxis LMWH DVT prophylaxis if improving, plan to send home w.. augmentin, tomorrow if Ok w.. [facility] is [facility] at [phone]
[2020-02-09] MEDS ORDERED: traZODone HCl 150 MG TAB PO SCH (21:00)
[2020-02-09 23:51] LABS: Vancomycin, Trough 19.5 ug/mL
[2020-02-10] MEDS: Vancomycin 1.5 GRAM/300 ML BAG 1.5 GM in Premix Bag 1 BAG IVPB SCH ×2 (00:01→07:19)
[2020-02-10] MEDS: Sodium Chloride 0.9% 1,000 ML IV SCH (00:04)
[2020-02-10] MEDS: Ampicillin/Sulbactam 1.5 GM in Sodium Chloride 0.9% 100 ML IVPB SCH ×2 (02:08→08:20)
[2020-02-10] MEDS: HYDROcodone/Acetaminophen 5/325 mg Tablet PO PRN ×3 (03:09→11:36)
[2020-02-10 07:20] VITALS: BP 138/83; TEMP 97.9
[2020-02-10] MEDS: Mupirocin 2% Ointment 22 GM Tube TOP SCH (08:19)
[2020-02-10] MEDS: Saccharomyces boulardii 250 MG CAP PO SCH (08:19)
[2020-02-10] MEDS: methylPREDNISolone Sod Succ 40 MG VIAL IVP SCH (08:20)
[2020-02-10 09:00] LABS: Anion Gap 10 mmol/L (10-20); BUN (Urea Nitrogen) 17 mg/dL (7.0-18.7); Calc. Creatinine Clearance 209 mL/min (70-130); Calcium 8.4 mg/dL (7.8-10.44); Carbon Dioxide 23 mmol/L (22-29); Chloride 110 mmol/L (98-107); Estimated GFR-MDRD Greater than 90; Glucose 113 mg/dL (70-105); Potassium 3.3 mmol/L (3.5-5.1); Sodium 140 mmol/L (136-145)
[2020-02-10] MEDS ORDERED: Sulfameth/Trimethoprim DS 800-160mg TAB PO SCH (12:15)
--- NOTE | 2020-02-10 13:25 | DIS ---
DATE OF ADMISSION: 02/07/2020 DATE OF DISCHARGE: 02/10/2020 DISCHARGE DIAGNOSES: 1. Staphylococcus infection of the right lip, possibly spider bite with previous history of multiple spider bites and associated significant swelling in the past , especially in her right arm. 2. Status post I and D of the lower lip. Hospital course 41 Year old female presented with lip swelling and concern for spider bite at home. started on unasyn and consulted [id number]. She had I & D. Her wound culture grew Staph aureus. The patient will be discharged with Bactrim double strength. She is expected to follow with Dr. Sterling as needed in a couple weeks, otherwise follow up with primary care physician. DISCHARGE INSTRUCTIONS: Activity as tolerated. Healthy heart diet. Follow up with primary care physician in 1 week. TIME SPENT: Discharge time took over 30 minutes. Job ID: [id number] [id number]
== END 2020-02-10 13:00 | disposition home or self-care (01) | DRG 137 ==
LOC: PREOBSVTOIN 15:32 → 2SE 17:50 → T4-B 17:59
PROVIDERS: ADMIT Internal Medicine; ATTEND Internal Medicine
PROC: 0C910ZZ Drainage of Lower Lip, Open Approach (ICD-10-PCS; principal; 2020-02-08)
DX: K13.0 Diseases of lips (principal); F31.81 Bipolar II disorder; M00.851 Arthritis due to other bacteria, right hip; E72.4 Disorders of ornithine metabolism; Z68.41 Body mass index [BMI] 40.0-44.9, adult; B95.8 Unspecified staphylococcus as the cause of diseases classified elsewhere; F41.9 Anxiety disorder, unspecified; E66.9 Obesity, unspecified; F17.210 Nicotine dependence, cigarettes, uncomplicated; Z88.1 Allergy status to other antibiotic agents; Z88.8 Allergy status to other drugs, medicaments and biological substances; Z98.84 Bariatric surgery status; Z87.440 Personal history of urinary (tract) infections
CPT/HCPCS: 36415; 80048; 80202; 85025; 87070; 87077; 87186; 87205; J0295; J0692; J1650; J2920; J2930; J3370; J3490; Q0177